=== PATIENT | female | born 1935 | race Caucasian/White ===

== ENCOUNTER 2019-09-29 10:12 | Inpatient (IN) ==
[2019-09-29] MEDS ORDERED: dilTIAZem Drip 125 MG/125 ML PREMIX IV SCH (14:00)
[2019-09-29] MEDS ORDERED: ONDANSETRON 4 MG/2 ML VIAL IV PRN (14:07)
[2019-09-29] MEDS ORDERED: ACETAMINOPHEN 325 MG TABLET PO PRN (14:07)
[2019-09-29] MEDS ORDERED: DOCUSATE SODIUM 100 MG CAPSULE PO PRN (14:07)
[2019-09-29] MEDS: SODIUM CHLORIDE 0.9% 1,000 ML IV SCH (15:22)
[2019-09-29 15:36] LABS: Risk Ratio 4.23; Thyroid Stimulating Hormone 1.53 uIU/ml (0.358-3.74)
[2019-09-29] MEDS: DILTIAZEM 30 MG TABLET PO SCH ×2 (17:34→21:32)
[2019-09-29] MEDS: POTASSIUM CHLORIDE 8 MEQ CAPSULE PO SCH ×2 (18:00→21:34)
[2019-09-29] MEDS: ASCORBIC ACID 500 MG TABLET PO SCH ×2 (18:01→21:34)
[2019-09-29 20:13] LABS: Apearance,Urine CLEAR (Clear); Bilirubin,Urine Negative (Negative); Blood, Urine Small mg/dL (Negative); Glucose,Urine (UA) Negative (Negative); Ketones,Urine Negative (Negative); Mucus,Urine Occasional /LPF (Occasional); Nitrite,Urine Negative (Negative); Protein,Urine Negative; RBC,Urine 1 /HPF (0-4); Squamous Epithelial Cell,Urine Occasional /HPF (0-10); Urine Color Yellow (Yellow); Urine Specific Gravity 1.019 (1.001-1.035); Urine Urobilinogen < 2.0 EU/DL (0.2-1.0); WBC,Urine 4 /HPF (0-6)
[2019-09-29] MEDS ORDERED: ATORVASTATIN 40 MG TABLET PO SCH (21:00)
[2019-09-29] MEDS: APIXABAN 5 MG TABLET PO SCH (21:33)
[2019-09-29] MEDS ORDERED: SERTRALINE 50 MG TABLET PO SCH (23:30)
[2019-09-29] MEDS ORDERED: MELATONIN 3 MG TABLET PO SCH (23:30)
[2019-09-30 05:39] LABS: Basophils % 0.5 % (0.0-0.8); Eosinophils # 0.1 10*3/uL (0.0-0.87); Eosinophils % 1.6 % (0.00-10.9); Hematocrit 35.7 VOL% (35.7-47.0); Hemoglobin 11.6 GM/DL (12.0-16.0); Immature Granulocytes % 0.1 %; Immature Granulocytes Absolute 0.01 #; Lymphocytes # 2.9 10*3/uL (1.4-4.0); Lymphocytes % 39.3 % (21.3-54.2); Mean Corpuscular HGB Conc 32.5 GM/DL (32-36); Mean Corpuscular Volume 96.7 FL (87-102); Mean Platelet Volume 10.3 FL (9.6-12.0); Monocytes % 7.4 % (1.7-12.7); Neutrophils % 51.1 % (38.7-73.9); Platelet Count 217 T/CUMM (130-400); Red Blood Count 3.69 MC/CUMM (3.8-5.5); Red Cell Distribution Width 13.1 % (9.3-17.3); White Blood Count 7.4 T/CUMM (4-12)
[2019-09-30 05:57] LABS: Osmolality,Calculated 280.4 MOS/KG (273-304)
[2019-09-30 07:55] VITALS: BP 172/77
[2019-09-30] MEDS: POTASSIUM CHLORIDE 8 MEQ CAPSULE PO SCH (08:56)
[2019-09-30] MEDS: APIXABAN 5 MG TABLET PO SCH (08:56)
[2019-09-30] MEDS: DILTIAZEM 30 MG TABLET PO SCH (08:56)
[2019-09-30] MEDS: ASCORBIC ACID 500 MG TABLET PO SCH (08:56)
[2019-09-30] MEDS ORDERED: PANTOPRAZOLE 40 MG TABLET PO SCH (09:00)
[2019-09-30] MEDS: SODIUM CHLORIDE 0.9% 1,000 ML IV SCH (09:00)
== END 2019-09-30 11:17 | disposition home or self-care (01) | DRG 310 ==
LOC: N.TELES 12:38 → SUATTDRO 12:38 → N.TELES 16:45
PROVIDERS: ADMIT Internal Medicine; ATTEND Family Medicine